=== PATIENT | male | born 1945 | race Caucasian/White ===

== ENCOUNTER 2019-12-25 06:10 | Day surgery (SDC) | payer MEDICARE ==
[2019-12-23 13:35] LABS: COVID AG,FIA SOURCE NASOPHARYNGEAL
[~2019-12-25] VITALS: Ht 182.9 cm; Wt 70.5 kg
[~2019-12-25 06:10] MED LIST: SODIUM CHLORIDE 0.9% 0 ML ONE; SODIUM CHLORIDE 0.9% 1,000 ML IV ONE; SODIUM CHLORIDE 0.9% 1,000 ML ONE
[2019-12-25] MEDS ORDERED: LIDOCAINE 4% 50 ML SOLUTION TP ONE (06:11)
[2019-12-25] MEDS ORDERED: BENZOCAINE 20% 50 MCG/SPRAY 57 GM TP ONE (06:11)
[2019-12-25] MEDS ORDERED: ALBUTEROL SULFATE 2.5 MG/0.5 ML NEB SOLUTION NEB ONE (06:11)
[2019-12-25] MEDS ORDERED: LIDOCAINE 2% 30 ML JELLY TP ONE (06:11)
[2019-12-25] MEDS ORDERED: SODIUM CHLORIDE 0.9% 1,000 ML IV ONE (06:30)
[2019-12-25] MEDS ORDERED: MIDAZOLAM HCL 2 MG/2 ML VIAL ONE (07:31)
[2019-12-25] MEDS ORDERED: FentaNYL CITRATE-PF 100 MCG/2 ML VIAL ONE (07:32)
[2019-12-25] MEDS ORDERED: MethylPREDNISolone SOD SUCC 125 MG/2 ML VIAL IVP ONE (08:30)
[2019-12-25] MEDS ORDERED: MethylPREDNISolone SOD SUCC 125 MG/2 ML VIAL ONE (08:57)
[2019-12-25] MEDS ORDERED: OXYGEN THERAPY IH SCH (20:00)
== END 2019-12-25 10:20 | disposition home or self-care (01) ==
LOC: SURGERY 06:10
PROVIDERS: ATTEND Internal Medicine Critical Care Medicine
DX: J38.4 Edema of larynx (principal); B37.0 Candidal stomatitis; Z98.890 Other specified postprocedural states
CPT/HCPCS: 31623; 31624; 71045; 87015; 87070; 87101; 87205; 87206; 87220; 87426; 88108; 88312; C9803; J2250; J2930; J3010; J7030; J7613; Z7610